=== PATIENT | male | born 1980 | race Caucasian/White ===

== ENCOUNTER 2017-11-11 13:39 | Emergency (ER) | payer SELFPAY ==
[~2017-11-11] VITALS: Ht 188 cm; Wt 90.9 kg
[~2017-11-11 13:39] MED LIST: ANTABUSE500 MG PO; KLONOPIN 1MG1 MG PO; LEXAPRO20 MG PO; SUBOXONE 8 MG-21 TAB SL
[2017-11-11 13:40] VITALS: TEMP 97
[2017-11-11 14:13] LABS: BASO % 0.6 % (0.0-2.0); EOS # 0.1 (0.0-0.7); EOS % 0.7 % (0-4.0); GRAN # 4.4 (1.4-6.5); GRAN % 62.7 % (42.2-75.2); HEMATOCRIT 39.6 % (42.0-52.0); HEMOGLOBIN 13.4 g/dl (13.5-18.0); LYMPH # 2.1 (1.2-3.4); LYMPH % 29.1 % (20.0-51.0); MEAN CELL VOLUME 101 fl (80.0-100.0); MEAN CORPUSCULAR HEMOGLOBIN 34 pg (27.0-31.0); MEAN CORPUSCULAR HGB CONC 34 g/dl (33.0-37.0); MEAN PLATELET VOLUME 11.7 fl (7.4-10.4); MONO # 0.5 (0.1-0.6); MONO % 6.6 % (1.7-9.3); PLATELET COUNT 225 K/mm3 (130-400); RED BLOOD COUNT 3.92 M/mm3 (4.20-5.60); REDCELL DISTRIBUTION WIDTH-CV 12.4 % (11.5-14.5)
[2017-11-11 14:21] LABS: ALANINE AMINOTRANSFERASE 95 U/L (21-72); ALBUMIN 4.6 gm/dL (3.5-5.0); ALKALINE PHOSPHATASE 38 U/L (50-136); ANION GAP 15 mmol/L (7-16); AST,SGOT 109 U/L (15-37); BILIRUBIN,TOTAL 0.6 mg/dL (0.0-1.0); BLOOD UREA NITROGEN 12 mg/dL (9-20); CALCIUM 9.2 mg/dL (8.4-10.2); CARBON DIOXIDE 24 mmol/L (22-30); CHLORIDE 97 mmol/L (98-107); CREATININE, serum 1.14 mg/dL (0.66-1.25); GLUCOSE 98 mg/dL (74-106); MAGNESIUM 2.1 mg/dL (1.6-2.3); PHOSPHOROUS 3.7 mg/dL (2.5-4.5); POTASSIUM 4.5 mmol/L (3.4-5.0); SODIUM 136 mmol/L (137-145); TOTAL PROTEIN 7.3 gm/dL (6.4-8.2)
[2017-11-11 14:26] LABS: ALCOHOL(ethanol),MEDICAL < 10 mg/dL; C-REACTIVE PROTEIN < 0.5 mg/dL (0.0-0.9)
[2017-11-11 14:34] LABS: PROLACTIN 70.4 ng/mL (3.7-17.9)
[2017-11-11 15:10] LABS: COLLECTION METHOD CLEAN CATCH
[2017-11-11 15:17] LABS: MUCOUS Present /lpf; PH 7 (5-8); SQUAMOUS EPITHELIAL 0-2 /hpf; URINE APPEARANCE Clear; URINE BACTERIA None Seen /hpf; URINE BILIRUBIN Negative (NEGATIVE); URINE BLOOD Negative (NEGATIVE); URINE COLOR Yellow; URINE GLUCOSE Negative (NEGATIVE); URINE KETONE Trace (NEGATIVE); URINE LEUKOCYTE ESTERASE Negative (NEGATIVE); URINE NITRATE Negative (NEGATIVE); URINE PROTEIN(semi-quant) 2+ (NEGATIVE); URINE UROBILINOGEN Negative (NEGATIVE)
[2017-11-11 15:28] LABS: TRICYCLIC ANTIDEPRESS URINE NEGATIVE
[2017-11-11] MEDS ORDERED: KEPPRA 500MG500 MG PO (15:49)
[2017-11-11 16:27] VITALS: BP 137/90; PULSE 78
== END 2017-11-11 16:29 | disposition home or self-care (01) ==
LOC: COL.ER 13:39
PROVIDERS: Emergency Medicine
DX: G40.909 Epilepsy, unspecified, not intractable, without status epilepticus (principal)
CPT/HCPCS: J1953; J2060; J7030